=== PATIENT | male | born 1985 | race Caucasian/White ===

== ENCOUNTER 2019-01-15 11:00 | Emergency (ER) | payer OTHER ==
[2019-01-15 11:43] VITALS: BP 141/94
[2019-01-15] MEDS ORDERED: Tetan/Diph/Pertus SYR(Tdap)* 0.5 ML SYR(BOOSTRIX) use SYR IM ONE (12:06)
--- NOTE | 2019-01-15 12:06 | UC ---
UC General HPI - HPI Summary HPI Summary: pt was doing a break job at work when his L hand slipped and he cut his ring finger. denies FB sensation and limited ROM. tetanus is unknown. occurred just airplane captain. - History of Current Complaint Chief Complaint: UCLaceration Stated Complaint: WC LEFT RING FINGER INJURY Time Seen by Provider: 01/15/19 11:58 Hx Obtained From: Patient Pain Intensity: 2 Associated Signs & Symptoms: Negative: Edema, Fever, Weakness - Allergy/Home Medications Allergies/Adverse Reactions: Allergies Allergy/AdvReac Type Severity Reaction Status Date / Time amoxicillin Allergy Hives Verified 01/15/19 11:43 Home Medications: Home Medications NK [No Home Medications Reported] 01/15/19 [History Confirmed 01/15/19] PMH/Surg Hx/FS Hx/Imm Hx Previously Healthy: Yes - Surgical History Surgical History: Yes Surgery Procedure, Year, and Place: abdominal surgery as a child - Family History Known Family History: Positive: Non-Contributory - Social History Occupation: Employed Full-time Alcohol Use: Weekly Substance Use Type: None Smoking Status (MU): Heavy Every Day Tobacco Smoker Type: Cigarettes Amount Used/How Often: 1/2 ppd Length of Time of Smoking/Using Tobacco: since age 16 Have You Smoked in the Last Year: Yes - Immunization History Most Recent Tetanus Shot: unknown Hx Tetanus, Diphtheria Vaccination: No Review of Systems All Other Systems Reviewed And Are Negative: No Constitutional: Negative: Fever Skin: Negative: Rash Motor: Negative: Decreased ROM Musculoskeletal: Negative: Edema Neurological: Negative: Weakness, Paresthesia, Numbness Physical Exam Triage Information Reviewed: Yes Appearance: Well-Appearing Vital Signs: Initial Vital Signs Temp 98.8 F 01/15/19 11:36 Pulse 95 01/15/19 11:36 Resp 18 01/15/19 11:36 BP 141/94 01/15/19 11:36 Pulse Ox 99 01/15/19 11:36 Vital Signs Reviewed: Yes Respiratory: Positive: No respiratory distress Cardiovascular: Positive: RRR Musculoskeletal: Positive: Other: - L hand=1cm laceration dorsal ring finger at PIP joint. fat seen. no tendon injury or FB seen. digit has full s/v/m function. only slight bleeding. rest of hand is unremarkable. Neurological: Positive: Alert Psychological: Positive: Age Appropriate Behavior Skin Exam: Normal Course/Dx - Course Course Of Treatment: PROCEDURE: PT DECLINED TO HAVE STITCHES BUT AGREED TO GLUE/STERISTRIPS. SITE CLEANED WITH SOAP THEN STERILE NACL(500ML) UNDER PRESSURE. IRRIGATION PERFORMED BY NURSE. AGAIN NO FB OR TENDON INJURY SEEN. SITE DRIES WITH STERILE GAUZE. WOUND CLOSED WITH SKIN GLUE THEN REINFORCED WITH STERISTRIPS. VOLAR ALUMINUM FINGER SPLINT APPLIED TO FINGER AND HELD WITH TAPE. PT TOERATED WELL. PROCEDURE BY THIS PA EXCEPT FOR IRRIGATION. - Diagnoses Provider Diagnosis: Skin wound closed with sterile strip, Glued skin wound Discharge - Sign-Out/Discharge Documenting (check all that apply): Patient Departure All imaging exams completed and their final reports reviewed: No Studies - Discharge Plan Condition: Stable Disposition: HOME Patient Education Materials: Skin Adhesive Care (ED), Steristrips (ED) Referrals: Vikki Toro [Primary Care Provider] - If Needed Additional Instructions: use the finger splint until wound heals and steristrips/glue fall off. - Billing Disposition and Condition Condition: STABLE Disposition: Home
== END 2019-01-15 12:34 | disposition home or self-care (01) ==
LOC: UCCORT 11:00
DX: S61.215A Laceration without foreign body of left ring finger without damage to nail, initial encounter (principal); W22.09XA Striking against other stationary object, initial encounter; Y93.89 Activity, other specified; Y92.89 Other specified places as the place of occurrence of the external cause; Y99.0 Civilian activity done for income or pay; Z88.0 Allergy status to penicillin; F17.210 Nicotine dependence, cigarettes, uncomplicated
CPT/HCPCS: 12001; 90471; 90715; 99211; G0463